=== PATIENT | male | born 1990 | race Caucasian/White ===

== ENCOUNTER 2018-01-13 02:42 | Emergency (ER) | payer SELFPAY | END 2018-01-13 02:55 | disposition left against medical advice (07) | LOC: ER 02:42 | DX: Z53.21 Procedure and treatment not carried out due to patient leaving prior to being seen by health care provider (principal) ==

== ENCOUNTER 2018-01-14 15:32 | Emergency (ER) | payer MEDICAID ==
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
== END 2018-01-14 16:55 | disposition home or self-care (01) ==
LOC: ER 15:32
DX: S01.511A Laceration without foreign body of lip, initial encounter (principal); F17.210 Nicotine dependence, cigarettes, uncomplicated; W22.8XXA Striking against or struck by other objects, initial encounter; Y93.89 Activity, other specified; Y92.89 Other specified places as the place of occurrence of the external cause; Y99.8 Other external cause status
CPT/HCPCS: 12011; Z7502; Z7610